=== PATIENT | male | born 1980 | race Caucasian/White ===

== ENCOUNTER 2024-01-07 20:29 | Emergency (ER) | payer MEDICARE, MEDICAID, SELFPAY ==
[2024-01-07] VITALS (24 sets, daily range): BP systolic 145–160; BP diastolic 69–90; PULSE 98–136; RESP 9–18; TEMP 36.5; O2SAT 89–98
--- NOTE | 2024-01-07 20:45 | RT.EKG_ITS ---
APPROVED REPORT Exam: Resting ECG Reason for Exam: tachycardia Patient Location: E HR:120 bpm ECG Measurements Heart Rate 120 AXIS IL 151 P 43 QRSd 89 QRS 64 QT 311 T 29 QTc 440 Conclusion Sinus tachycardia 120 no stemi
--- NOTE | 2024-01-07 21:11 | W.ED.GENAD ---
Discharge Plan Discharge Details Chief Complaint: PsychEval Clinical Impression: Paranoid, Tachycardia, Auditory hallucination, Bipolar 1 disorder, Diaphoresis Primary Care Provider: Unknown,Unknown ED Provider: Di De La Fuente [facility] General Date/Time Provider Initiated Documentation: 01/07/24 20:37. Limitations to Documentation: altered mental status. Information obtained by: patient and old records reviewed. HPI Narrative: 43-year-old gentleman with past medical history of bipolar disorder, paranoia, TBI, opiate use disorder presents for evaluation of altered mental status. Patient presents via police. He is also accompanied by [facility] worker. They got involved today because the patient has been calling 911 repeatedly asking for help. He has been seeing some very concerning things that include that he has got bodies in his room, the people are out to get him. He stated that he had his girlfriend, but did not know her name and that he she will be waiting at home for him in bed. He reported that he had people yelling at him and that he was repeatedly receiving shocks from them. It has per report been confirmed that the patient does not have the people in his house. He was found at [place] and had stolen a phone smelter charger. The police and the plastic surgeon met the patient there and he reported that he did want to come here to the hospital for evaluation. On my evaluation of the patient, he is having difficulty maintaining eye contact. He is clearly responding to internal stimuli and will stare into the distance and talk in a very low voice that I cannot understand. He says that he is bending twitched and has this shock sensation coming across his arms. He denies any drug use. He does report that he has a history of a brain injury. Related Data Allergies Allergy/AdvReac Type Severity Reaction Status Date / Time hydrocodone Allergy Unknown Contraindic Unverified 01/07/24 21:20 ated General Stated Complaint: PsychEval YULIYA: 2 Exam Narrative Exam Narrative: Review of Systems: All systems reviewed & are unremarkable except as noted in HPI and below Well-developed, +acute distress + Profusely diaphoretic NCAT PERRL, normal conjunctiva Pupils midrange Tachycardic Unlabored respiratory effort Nondistended abdomen Extremities w/o deformity, no cyanosis, no edema No rashes or lesions. Oriented to person, cannot tell me where he is or the circumstances. He reports that he was trying to get in touch with his plastic surgeon Difficult to maintain attention, responding to internal stimuli, having conversations under his breath Course Vital Signs Vital signs: Vital Signs Temperature 36.5 C 01/07/24 21:04 Pulse 136 H 01/07/24 21:04 Respiratory Rate 18 01/07/24 21:04 Blood Pressure 147/81 H 01/07/24 21:04 Pulse Oximetry 98 01/07/24 21:04 Temperature 36.5 C 01/07/24 21:04 Temperature Source Temporal Artery Scan 01/07/24 21:04 Pulse 136 H 01/07/24 21:04 Respiratory Rate 18 01/07/24 21:04 Blood Pressure 147/81 H 01/07/24 21:04 Blood Pressure Position Sitting 01/07/24 21:04 Pulse Oximetry 98 01/07/24 21:04 Oxygen Delivery Method Room Air 01/07/24 21:04 Oxygen Flow Rate 0 01/07/24 21:04 Medical Decision Making Emergent evaluation of altered mental status. Limited information and history regarding the events of the day were able to be obtained from the patient. I am concerned that he is diffusely diaphoretic and tachycardic. My initial differential includes polysubstance abuse, cardiac dysrhythmia, electrolyte derangement. I was able to obtain medical history from the [facility]. Patient does have a history of bipolar disorder and TBI and opiate use disorder. 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 It also appears that he had a traumatic brain injury in 2012. The medical record at [facility] reveals that he was last seen in [place] at 2020 at [facility]. There were emergency contacts listed in his chart. 1 number is inaccurate, the other number was a person that was his home health sitter but she has not seen the patient for 2 years. Per [facility], patient has been in the [facility] for an unknown amount of time but has housing at the [facility]. Initial plan for lab work, fluid resuscitation. Will give benzodiazepine for stabilization. At this time there is no indication for EE. For patient's saftey, a CPSO has been ordered. Will monitor closely and reassess. 2219 VS continue to stablize, patient continues to sleep. will sign out to oncoming provider. Plan for review of labwork. UDS, request by [facility]. Will need assessment of MH needs prior to discharge. Quality:SDOH Health Related Social Needs: No Data to Display [facility] All Active Problems (Updated 01/07/24 @ 22:20 by Di De La Fuente MD) Diaphoresis (Acute) Bipolar 1 disorder (Acute) Auditory hallucination (Acute) Tachycardia (Acute) Paranoid (Acute) Social History Smoking/Tobacco Use Status: Unknown Smoking risk assessment performed?: Yes Substance use type: unknown Details: Unable to obtain history Sign Out Sign Out Data: Sign Out Comment: 43y M with TBI, Bipolar, OUD (on brixadi) presents with agitation, paranoia, hallucinations. was diaphoretic and tachycardic on arrival. Has been giving ativan and IV fluids. Currently sleeping, on mobile sales technician. Will need review of labs and reassess MH needs prior to discharge. [facility] aware of patient but unable to evaluate him fully because of his mental status. Last updated by Di De La Fuente MD at 01/07/24 22:15
[2024-01-07] MEDS: LORazepam 2 MG/ML VIAL IVP (21:25)
[2024-01-07] MEDS: Normal Saline 1,000 ML 1000 ML IV (21:39)
[2024-01-07 21:40] LABS: Abs Immature Grans 0.03 10^3/uL (0.0-0.06); Absolute Basophil Count 0.02 10^3/uL (0.0-0.2); Absolute Eosinophil Count 0.07 10^3/uL (0.0-0.7); Absolute Lymphocyte Count 1.57 10^3/uL (1.2-3.4); Absolute Monocyte Count 1.03 10^3/uL (0.1-0.8); Absolute Neutrophil Count 6.33 10^3/uL (1.2-6.7); Basophils % 0.2; Eosinophils % 0.8; HGB 13.2 g/dL (13.5-17.5); Immature Grans % 0.3; Lymphocytes % 17.3; MCH 29.9 pg (27.0-33.0); MCV 91 fL (80-95); MPV 10.1 fL (8.0-11.0); Monocytes % 11.4; Platelet Count 248 10^3/uL (130-400); RBC 4.41 10^6/uL (4.36-5.78); RDW-SD 42.9 fL; WBC 9.05 10^3/uL (4.4-10.8)
[2024-01-07 21:58] LABS: Magnesium 2.3 mg/dL (1.8-2.4); Troponin I < 50 ng/L (< or =60)
[2024-01-07 22:09] LABS: ALT 44 U/L (16-63); AST 52 U/L (15-37); Alkaline Phosphatase 98 U/L (46-116); Anion Gap 11.6 mmol/L (3-11); BUN 12 mg/dL (7-18); Bilirubin, Total 1.2 mg/dL (0.2-1.0); CO2 23.4 mmol/L (21.0-32.0); CREATININE 1.7 mg/dL (0.70-1.30); Calcium 9.1 mg/dL (8.5-10.1); Chloride 104 mmol/L (98-107); Glucose 126 mg/dL (74-106); Potassium 3.4 mmol/L (3.5-5.1); Sodium 139 mmol/L (136-145); TSH (W/Ref FT4) 1.04 uIU/mL (0.36-3.74); Total Protein 7.1 g/dL (6.4-8.2)
[2024-01-07 22:11] LABS: ETHANOL BLOOD < 3.0 mg/dL (<10); Salicylate 4.6 mg/dL (<2.8)
[2024-01-07 22:12] LABS: Acetaminophen < 2 ug/mL (10-30)
[2024-01-07 22:26] LABS: Creatine Kinase 1049 U/L (39-308)
--- NOTE | 2024-01-07 22:46 | W.EDPROG ---
Date of service: 01/07/24 Time of Service: 22:00 Medical Decision Making 43-year-old male with history of bipolar disorder. Laboratory studies show elevated CPK. IV fluid bolus was given. Patient also received bicarb drip. Recheck of laboratory studies after bicarb drip shows that CPK has trended down however still mildly elevated. He also has further decrease in his potassium. IV potassium replacement was ordered as patient is currently sleeping. Further IV fluids were ordered. Dose of oral potassium placement was ordered for when patient wakes in the morning. He has been sleeping throughout shift. Will be signed out to oncoming provider for further evaluation and disposition. Quality:[facility] Health Related Social Needs: No Data to Display Sign Out Sign Out Data: Sign Out Comment: 43y M with TBI, Bipolar, OUD (on brixadi) presents with agitation, paranoia, hallucinations. was diaphoretic and tachycardic on arrival. Has been giving ativan and IV fluids. Currently sleeping, on workers compensation examiner. Will need review of labs and reassess MH needs prior to discharge. [facility] aware of patient but unable to evaluate him fully because of his mental status. Last updated by Di De La Fuente MD at 01/07/24 22:15 Discharge Plan Discharge Details Chief Complaint: PsychEval Clinical Impression: Paranoid, Tachycardia, Auditory hallucination, Bipolar 1 disorder, Diaphoresis, Rhabdomyolysis, Acute hypokalemia Primary Care Provider: Unknown,Unknown ED Provider: Renée Pike
[2024-01-07] MEDS: Normal Saline 1,000 ML 100 ML IV (22:47)
[2024-01-07] MEDS: SODIUM BICARBONATE 150 MEQ in DEXTROSE 5%-WATER 850 ML 250 MEQ IV (23:19)
[2024-01-08] VITALS (61 sets, daily range): BP systolic 123–166; BP diastolic 77–99; PULSE 80–98; RESP 8–22; O2SAT 89–98
[2024-01-08 04:30] LABS: Anion Gap 9.1 mmol/L (3-11); BUN 10 mg/dL (7-18); CO2 30.9 mmol/L (21.0-32.0); CREATININE 1.2 mg/dL (0.70-1.30); Chloride 104 mmol/L (98-107); Creatine Kinase 840 U/L (39-308); Estimated GFR 77.92 (mL/min/1.73m2); Glucose 132 mg/dL (74-106); Potassium 3.1 mmol/L (3.5-5.1); Sodium 144 mmol/L (136-145)
[2024-01-08] MEDS: Normal Saline 1,000 ML 1000 ML IV (05:55)
[2024-01-08] MEDS: POTASSIUM CHLORIDE 10 MEQ/100 ML BAG 100 MEQ IVPB (05:56)
[2024-01-08] MEDS: Potassium Chloride 20 MEQ TABCR 40 MEQ PO (07:30)
[2024-01-08 07:39] LABS: Bilirubin Moderate (Negative); Blood Negative (Negative); Clarity Cloudy (Clear); Glucose 100 mg/dL (Negative); Ketones 15 mg/dL (Negative); Leukocyte Esterase Trace (Negative); Nitrite Positive (Negative); Specific Gravity 1.025 (1.005-1.025); pH 5.5 (5-8)
--- NOTE | 2024-01-08 07:42 | ED.PROG_ITS ---
Date of service: 01/08/24 Time of Service: 07:42 Medical Decision Making Patient resting comfortably no acute distress. Patient Dors that he does not want to be here. Denies SI denies HI. Endorse that he lives at the [facility] and wishes to leave and walk home. Requesting to use the phone before he leaves. Patient calm cooperative interactive goal oriented. Quality:SDOH Health Related Social Needs: No Data to Display Sign Out Sign Out Data: Sign Out Comment: 43y M with TBI, Bipolar, OUD (on brixadi) presents with agitation, paranoia, hallucinations. was diaphoretic and tachycardic on arrival. Has been giving ativan and IV fluids. Currently sleeping, on timber poisoner. Will need review of labs and reassess MH needs prior to discharge. [facility] aware of patient but unable to evaluate him fully because of his mental status. Last updated by Di De La Fuente MD at 01/07/24 22:15 Discharge Plan Disposition Patient Disposition: Home Condition: Improving Discharge Details Chief Complaint: PsychEval Clinical Impression: Bipolar 1 disorder, Rhabdomyolysis, Acute hypokalemia Primary Care Provider: Unknown,Unknown ED Provider: Jose Adair Discharge Instructions Instructions: Psychotic Disorder (ED) Additional Instructions: Please follow-up with your primary care physician and [facility] human services
[2024-01-08 07:49] LABS: Bacteria Moderate HPF (Negative); Crystals Negative HPF (Negative); Epithelial Cells Few HPF (Negative); Mucus Trace (Negative); Other Cells Few Renal (Negative); RBC 0-2 HPF (0-2)
[2024-01-08 07:50] LABS: C & S Indicated? Yes
[2024-01-08 07:54] LABS: *AMPHETAMINES SCREEN URINE Negative (Negative); *BARBITURATES SCREEN URINE Negative (Negative); *BENZODIAZEPINES SCREEN URINE Negative (Negative); Cannabinoids THC Negative (Negative); Cocaine Screen,Urine Negative (Negative); METHADONE URINE SCREEN Negative (Negative); OPIATES URINE SCREEN Negative (Negative)
[2024-01-08 07:55] LABS: Tricyclic Antidepressants Positive (Negative)
== END 2024-01-08 08:09 | disposition home or self-care (01) ==
LOC: ER 01-08 08:13
PROVIDERS: Emergency Medicine; Emergency Medicine Emergency Medical Services; Emergency Provider Emergency Medicine
DX: F22 Delusional disorders (principal); R00.0 Tachycardia, unspecified; R44.0 Auditory hallucinations; F31.9 Bipolar disorder, unspecified; M62.82 Rhabdomyolysis; E87.6 Hypokalemia; R41.0 Disorientation, unspecified; Z11.52 Encounter for screening for COVID-19
CPT/HCPCS: 00123; 80048; 80053; 80307; 82550; 93005; 96361; 96365; 96375; 99284; 80320; 80329; 81003; 81015; 83735; 84443; 84484; 85025; 87086; 93010; J2060; J3480; J7060

== ENCOUNTER 2024-01-08 20:16 | Inpatient (IN) | payer MEDICARE, MEDICAID, SELFPAY ==
[2024-01-08 20:29] VITALS: BP 170/65; PULSE 124; RESP 14; TEMP 37.4; O2SAT 96
--- NOTE | 2024-01-08 20:45 | RT.EKG_ITS ---
APPROVED REPORT Exam: Resting ECG Reason for Exam: tachycardia Patient Location: E HR:117 bpm ECG Measurements Heart Rate 117 AXIS AZ 155 P 25 QRSd 89 QRS 72 QT 331 T -12 QTc 463 Conclusion Sinus tachycardia...rate> 99 Consider anterior infarct...Q >30mS in V2-V5 sinus tachycardia, normal axis, normal intervals, non ischemic
[2024-01-08] MEDS: Normal Saline 1,000 ML 1000 ML IV ×2 (21:30→23:47)
[2024-01-08 21:38] LABS: Abs Immature Grans 0.02 10^3/uL (0.0-0.06); Absolute Basophil Count 0.02 10^3/uL (0.0-0.2); Absolute Eosinophil Count 0.08 10^3/uL (0.0-0.7); Absolute Lymphocyte Count 1.98 10^3/uL (1.2-3.4); Absolute Monocyte Count 0.82 10^3/uL (0.1-0.8); Absolute Neutrophil Count 5.41 10^3/uL (1.2-6.7); Basophils % 0.2; HCT 36.7 % (40.0-50.0); HGB 12.3 g/dL (13.5-17.5); Immature Grans % 0.2; Lymphocytes % 23.8; MCH 30.2 pg (27.0-33.0); MCHC 33.5 % (32.0-36.0); MCV 90 fL (80-95); MPV 10.1 fL (8.0-11.0); Monocytes % 9.8; Platelet Count 229 10^3/uL (130-400); RBC 4.07 10^6/uL (4.36-5.78); RDW-SD 42.9 fL; WBC 8.33 10^3/uL (4.4-10.8)
--- NOTE | 2024-01-08 21:50 | NUR.NOTE ---
Pt stated he is not able to provide a urine sample at this time, OMARI
--- NOTE | 2024-01-08 21:50 | NUR.NOTE ---
Pt has refused his head CT, he is conscious alert awake and able to answer questions appropriately, he has stated that he is depressed and doesn't need to have his head looked at, pt appears capable of making an informed decision, OMARI
[2024-01-08 21:51] LABS: ALT 45 U/L (16-63); AST 59 U/L (15-37); Albumin 3.5 g/dL (3.4-5.0); Alkaline Phosphatase 93 U/L (46-116); Anion Gap 9.8 mmol/L (3-11); BUN 12 mg/dL (7-18); Bilirubin, Total 0.6 mg/dL (0.2-1.0); CO2 27.2 mmol/L (21.0-32.0); CREATININE 0.9 mg/dL (0.70-1.30); Calcium 8.2 mg/dL (8.5-10.1); Chloride 104 mmol/L (98-107); Estimated GFR 110.04 (mL/min/1.73m2); Glucose 124 mg/dL (74-106); Lipase 12 U/L (16-77); Potassium 3.5 mmol/L (3.5-5.1); Sodium 141 mmol/L (136-145)
[2024-01-08 22:01] LABS: ETHANOL BLOOD < 3.0 mg/dL (<10)
[2024-01-08 22:06] LABS: Magnesium 2.1 mg/dL (1.8-2.4)
--- NOTE | 2024-01-08 22:15 | ED.GENADUL_ITS ---
Discharge Plan Discharge Details Chief Complaint: PsychEval Admit Date/Time: 01/08/24 23:58 Admit Provider: Raad Crooks Attending Provider: Raad Crooks Primary Care Provider: Unknown,Unknown ED Provider: Maxine Brennan Discharge Data Discharge Date/Time-TO BE ENTERED AT DEPARTURE: 01/09/24 02:19 HPI General Date/Time Provider Initiated Documentation: 01/08/24 20:17 . HPI Narrative: This 43-year-old male presents with report of being seen last evening and feeling confused at that time. He denies any illicit drug use. He states he felt much better when he awoke this morning. He denies any new medications. He states that over the past 3 days has been feeling very suicidal and depressed. He states he has been out of his meds and has thoughts of wanting to harm himself. Denies any chest pain or shortness of breath. Denies any attempts to harm himself. Related Data Home Medications Medication Instructions Recorded Confirmed buprenorphine 128 mg/0.36 mL 128 mg subcut Q28D 01/08/24 01/08/24 solution,ext.rel.subcutaneous syringe (Brixadi Monthly) bupropion HCl 150 mg 24 hr tablet, 150 mg PO BID 01/08/24 01/08/24 extended release buspirone 10 mg tablet 20 mg PO TID 01/08/24 01/08/24 cefpodoxime 200 mg tablet 200 mg PO BID 7 days #14 tabs 01/08/24 01/09/24 clonidine HCl 0.1 mg tablet 0.1 mg PO TID 01/08/24 01/08/24 famotidine 40 mg tablet 40 mg PO DAILY 01/08/24 01/08/24 lamotrigine 150 mg tablet 150 mg PO DAILY 01/08/24 01/08/24 omeprazole 40 mg capsule,delayed 40 mg PO DAILY 01/08/24 01/08/24 release pregabalin 300 mg capsule 300 mg PO BID 01/08/24 01/08/24 Previous Rx's Medication Instructions Recorded cefpodoxime 200 mg tablet 200 mg PO BID 7 days #14 tabs 01/08/24 Allergies Allergy/AdvReac Type Severity Reaction Status Date / Time bee venom protein (honey bee) Allergy Severe Anaphylaxis Verified 01/08/24 20:36 hydrocodone Allergy Unknown Contraindic Unverified 01/08/24 20:36 ated aspirin AdvReac Nausea Verified 01/08/24 07:19 propoxyphene AdvReac Other (See Verified 01/08/24 07:19 Comment) General Stated Complaint: PsychEval YULIYA: 2 Course Vital Signs Vital signs: Vital Signs Temperature 37.4 C 01/08/24 20:29 Pulse 124 H 01/08/24 20:29 Respiratory Rate 14 01/08/24 20:29 Blood Pressure 170/65 H 01/08/24 20:29 Pulse Oximetry 96 01/08/24 20:29 Temperature 37.4 C 01/08/24 20:29 Temperature Source Temporal Artery Scan 01/08/24 20:29 Pulse 124 H 01/08/24 20:29 Respiratory Rate 14 01/08/24 20:29 Respiratory Effort Normal, Non-Labored 01/08/24 20:37 Blood Pressure 170/65 H 01/08/24 20:29 Blood Pressure Position Sitting 01/08/24 20:29 Pulse Oximetry 96 01/08/24 20:29 Oxygen Delivery Method Room Air 01/08/24 20:29 Oxygen Flow Rate 0 01/08/24 20:29 Pain Level 0 01/08/24 20:29 Lab/Test Results Lab/Test Results: Laboratory Tests Range/Units 01/08/24 21:28 WBC (4.4-10.8) 10^3/uL 8.33 RBC (4.36-5.78) 10^6/uL 4.07 L Hgb (13.5-17.5) g/dL 12.3 L Hct (40.0-50.0) % 36.7 L MCV (80-95) fL 90 MCH (27.0-33.0) pg 30.2 MCHC (32.0-36.0) % 33.5 RDW (11.8-14.1) % 13.0 Plt Count (130-400) 10^3/uL 229 MPV (8.0-11.0) fL 10.1 Immature Gran % 0.2 Neutrophils % 65.0 Lymphocytes % 23.8 Monocytes % 9.8 Eosinophils % 1.0 Basophils % 0.2 Nucleated RBC % (0.0-0.3) % 0.0 Absolute Neutrophils (1.2-6.7) 10^3/uL 5.41 Absolute Lymphocytes (1.2-3.4) 10^3/uL 1.98 Absolute Monocytes (0.1-0.8) 10^3/uL 0.82 H Absolute Eosinophils (0.0-0.7) 10^3/uL 0.08 Absolute Basophils (0.0-0.2) 10^3/uL 0.02 Sodium (136-145) mmol/L 141 Potassium (3.5-5.1) mmol/L 3.5 Chloride (98-107) mmol/L 104 Carbon Dioxide (21.0-32.0) mmol/L 27.2 Anion Gap (3-11) mmol/L 9.8 BUN (7-18) mg/dL 12 Creatinine (0.70-1.30) mg/dL 0.9 Est GFR (CKD-EPI 2020) (mL/min/1.73m2) 110.04 Glucose (74-106) mg/dL 124 H Calcium (8.5-10.1) mg/dL 8.2 L Magnesium (1.8-2.4) mg/dL 2.1 Total Bilirubin (0.2-1.0) mg/dL 0.6 AST (15-37) U/L 59 H ALT (16-63) U/L 45 Alkaline Phosphatase (46-116) U/L 93 Total Protein (6.4-8.2) g/dL 7.0 Albumin (3.4-5.0) g/dL 3.5 Lipase (16-77) U/L 12 L Ethyl Alcohol (<10) mg/dL < 3.0 Medical Decision Making 23-year-old male, alert and oriented x 3, having intermittent auditory and visual hallucinations but completely lucid, states he has had these before and d oes have a history of bipola with psychotic features,, he has reportedly been off his meds for the last 3 days He denies any attempts to harm self by taking too many meds He is reportedly suicidal at this time but does denies any attempts to harm self Patient is alert and oriented x 4, he is ambulatory with steady gait, he has a nonfocal neurological exam without any visible sign of trauma, pupils equal round reactive to light and accommodation, speech intact I did order a CT head, however patient declines he states he feels he does not need to have this test performed as he is at his baseline, he states he does have a history of TBI I think it is reasonable to hold off on CT at this time and continue to observe patient At this time, patient's CPK remains elevated when compared to prior 1400, 1000 yesterday, he is on Lyrica and Lamictal which both can cause rhabdomyolysis, I will hold these medications at this time Patient received 2 L of fluid in the emergency department, he will continue to need fluid resuscitation, he is not medically cleared to be evaluated by mental health yet On exam, he is oropharynx was quite dry, patient appears clinically dehydrated His urine is quite dark as well He has no flank pain and creatinine is within normal limits Mild elevation in LFT I think patient will need admission for IV fluids secondary to acute rhabdomyolysis and holding Lamictal and Lyrica at this time I will reinitiate patient's additional meds and Dr. Parkinson will admit patient to his service, full CODE STATUS Quality:SDOH Health Related Social Needs: Health related social needs risk of homeless PFSH All Active Problems (Updated 01/09/24 @ 07:38 by Raad Crooks) Opioid use disorder (Chronic) TBI (traumatic brain injury) (Chronic) UTI (urinary tract infection) (Acute) Acute hypokalemia (Acute) Rhabdomyolysis (Acute) Bipolar 1 disorder (Chronic) Social History Smoking/Tobacco Use Status: Current-Occasional Tobacco Type: e-cigarettes Smoking risk assessment performed?: Yes Alcohol Intake: current Alcohol Intake frequency: 0-2 drinks per day Alcohol type: beer Substance use type: unknown Details: Unable to obtain history Housing: other PAWSS Have you Been Recently Intoxicated or Drunk Within the Last 30 days?: Yes Have you Ever Experienced Previous Episodes of Alcohol Withdrawal?: Yes Have you ever Experienced Withdrawal Seizures?: Yes Have you ever Experienced Delirium Tremens(DT)s?: No Have you ever undergone Alcohol Rehabilitation Treatment (i.e, inpt ot outpatient treatment programs)?: Yes Have you ever Experienced Blackouts?: No Have you ever Combined Alcohol with other Downers within the last 90 days?: No Have you ever Combined Alcohol with any other Substance of Abuse during the last 90 days?: No Positive Blood Alcohol level on Presentation? [PCS.BAL]: Unable to Obtain Evidence of Increased Autonomic Activity (i.e. HR>120, tremor, sweating, agitation, nausea)?: No Result: 4
[2024-01-08 22:16] LABS: COVID-19 PCR Negative (Negative); Influenza A PCR Negative (Negative); Influenza B PCR Negative (Negative); RSV PCR Negative (Negative)
[2024-01-08 22:17] LABS: Source Nasopharynx
[2024-01-08 22:39] LABS: Creatine Kinase 1420 U/L (39-308)
[2024-01-08 22:43] LABS: Bilirubin Small (Negative); Blood Negative (Negative); Clarity Clear (Clear); Glucose Negative (Negative); Ketones 40 mg/dL (Negative); Leukocyte Esterase Negative (Negative); Nitrite Negative (Negative); Specific Gravity >= 1.030 (1.005-1.025); pH 5.5 (5-8)
[2024-01-08 22:50] LABS: Epithelial Cells Moderate HPF (Negative); RBC 0-2 HPF (0-2)
[2024-01-08 22:51] LABS: Bacteria Negative HPF (Negative); Crystals Negative HPF (Negative); Mucus Heavy (Negative); Other Cells Rare Transitional (Negative)
[2024-01-08 22:53] LABS: C & S Indicated? No/Sq. Contamination
[2024-01-08 23:00] LABS: *AMPHETAMINES SCREEN URINE Negative (Negative); *BARBITURATES SCREEN URINE Negative (Negative); *BENZODIAZEPINES SCREEN URINE Negative (Negative); Cannabinoids THC Negative (Negative); Cocaine Screen,Urine Negative (Negative); METHADONE URINE SCREEN Negative (Negative); OPIATES URINE SCREEN Negative (Negative)
[2024-01-08 23:07] LABS: Tricyclic Antidepressants Positive (Negative)
[2024-01-08] MEDS: busPIRone 5 MG TAB 20 MG PO (23:46)
[2024-01-08] MEDS: buPROPion-XL 150 MG TABCR PO (23:46)
[2024-01-08] MEDS: Famotidine 20 MG TAB 40 MG PO (23:47)
[2024-01-08] MEDS: cloNIDine 0.1 MG TAB PO (23:47)
[2024-01-09] VITALS (7 sets, daily range): BP systolic 110–143; BP diastolic 48–98; PULSE 76–96; RESP 14–18; TEMP 35.4–37.4; O2SAT 94–99
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
[2024-01-09] MEDS: Normal Saline 1,000 ML 150 ML IV (02:57)
[2024-01-09] MEDS: Acetaminophen 325 MG TAB PO ×3 (05:35→16:30)
[2024-01-09 07:17] LABS: TSH (W/Ref FT4) 1.49 uIU/mL (0.36-3.74)
[2024-01-09 07:20] LABS: Creatine Kinase 1145 U/L (39-308)
[2024-01-09] MEDS: buPROPion-XL 150 MG TABCR PO ×2 (08:27→13:08)
[2024-01-09] MEDS: busPIRone 5 MG TAB 20 MG PO ×3 (08:28→20:42)
[2024-01-09] MEDS: Cefpodoxime 200 MG TAB PO ×2 (08:28→20:44)
[2024-01-09] MEDS: cloNIDine 0.1 MG TAB PO ×3 (08:29→20:45)
[2024-01-09] MEDS: Famotidine 20 MG TAB 40 MG PO (08:29)
[2024-01-09] MEDS: Enoxaparin 40 MG/0.4 ML SYR SC (08:29)
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
--- NOTE | 2024-01-09 12:54 | W.PM.PROGNOT ---
Date of Service Date of service: 01/09/24 Time of Service: 12:54 Assessment and Plan Assessment and plan (1) Rhabdomyolysis: Start date: 01/08/24 Status: Acute Assessment and plan: -etiology uncertain. -His presenting symptoms on the same day could have been associated with not taking his meds for 3 days and having serotonin syndrome though this was not addressed. -He is not tremulous or as agitated and not diaphoretic upon his second presentation but rhabdomyolysis was persistent and worsening. -He did have a bicarb drip and IV hydration previously and IV hydration will be continued for now with no further evaluation other than holding the possible offending medications which could cause rhabdomyolysis. -Is uncertain how long he has been on this medication regimen. -holding lamictal and pregabalin -CK improved this AM from 1420 down to 1145, will continue to monitor -Ordered Psych consult for medication recommendations, odd affect, and reported suicidal ideation Qualifiers: Rhabdomyolysis type: non-traumatic Qualified Code(s): M62.82 - Rhabdomyolysis (2) UTI (urinary tract infection): Start date: 01/07/24 Status: Acute Assessment and plan: -Patient was started on cephalexin which will be continued with follow-up urine culture adjusting medical therapy as needed. -He is not having symptoms of UTI, pyelonephritis or sepsis and imaging was not performed but could be entertained if he has fever or change in status. Qualifiers: Urinary tract infection type: acute cystitis Hematuria presence: without hematuria Qualified Code(s): N30.00 - Acute cystitis without hematuria (3) TBI (traumatic brain injury): Status: Chronic Assessment and plan: -Patient has just recently moved to this area and needs increased supervision of medical care and follow-up. Qualifiers: Encounter type: sequela Loss of consciousness presence/duration: unknown LOC status Qualified Code(s): S06.9XAS - Unspecified intracranial injury with loss of consciousness status unknown, sequela (4) Bipolar 1 disorder: Status: Chronic Assessment and plan: -Reinitiate psychiatric medications except for Lyrica and Lamictal. Patient will need psychiatric evaluation with history of suicidal ideation and paranoia obtain over the last 48 hours in the ED. (5) Opioid use disorder: Status: Chronic Assessment and plan: -Patient is on injectable Suboxone and had a negative urine drug screen upon admission indicating that he is not having recent polysubstance abuse. -He did deny recent opioid use to the ED physician. -Suboxone would not show up on urine drug screen and he will follow-up with his substance abuse counseling as an outpatient. -He does not appear to be self using presently and his recent symptoms are most likely not secondary to withdrawal symptoms from illicit drug use. Subjective Subjective Interval history since last seen: Patient states that he is doing well today and feels better. He appears to show understanding that his complaints of muscle weakness are tied to his CK levels and possibly one of his psych meds and that we will be consulting psychiatry for recommendations on medications going forward. Exam Narrative Exam Narrative: Well-appearing gentleman sitting on the edge of the bed in no acute distress, awake, alert, oriented to person, place, time and location though questionable whether or not patient fully understands current medical condition, heart regular rate rhythm, lungs clear to auscultation bilaterally, abdomen soft, nontender, nondistended Objective Last Vital Signs Temp 95.7 F L 01/09/24 08:11 Pulse 89 01/09/24 08:11 Resp 18 01/09/24 02:11 BP 125/77 01/09/24 08:11 Pulse Ox 98 01/09/24 08:11 Laboratory Results - last 24 hr 01/08/24 01/08/24 01/09/24 21:28 22:35 06:13 WBC 8.33 RBC 4.07 L Hgb 12.3 L Hct 36.7 L MCV 90 MCH 30.2 MCHC 33.5 RDW 13.0 Plt Count 229 MPV 10.1 Immature Gran % 0.2 Neutrophils % 65.0 Lymphocytes % 23.8 Monocytes % 9.8 Eosinophils % 1.0 Basophils % 0.2 Nucleated RBC % 0.0 Absolute Neutrophils 5.41 Absolute Lymphocytes 1.98 Absolute Monocytes 0.82 H Absolute Eosinophils 0.08 Absolute Basophils 0.02 Sodium 141 Potassium 3.5 Chloride 104 Carbon Dioxide 27.2 Anion Gap 9.8 BUN 12 Creatinine 0.9 Est GFR (CKD-EPI 2020) 110.04 Glucose 124 H Calcium 8.2 L Magnesium 2.1 Total Bilirubin 0.6 AST 59 H ALT 45 Alkaline Phosphatase 93 Creatine Kinase 1420 H 1145 H Total Protein 7.0 Albumin 3.5 Lipase 12 L TSH Urine Color Dark Yellow Urine Clarity Clear Urine pH 5.5 Ur Specific [place] >= 1.030 H Urine Protein 30 H Urine Ketones 40 H Urine Blood Negative Urine Nitrite Negative Urine Bilirubin Small H Urine Urobilinogen 1.0 H Ur Leukocyte Esterase Negative Urine RBC 0-2 Urine WBC 10-20 H Ur Epithelial Cells Moderate Urine Crystals Negative Urine Bacteria Negative Urine Casts 5-10 WBC Urine Mucus Heavy Urine Other Rare Transitional Ur Culture Indicated? No/Sq. Contamination Urine Glucose Negative Urine Opiates Screen Negative Urine Methadone Screen Negative Ur Barbiturates Screen Negative Ur Tricyclics Screen Positive A Ur Amphetamines Screen Negative U Benzodiazepines Scrn Negative Urine Cocaine Screen Negative Ur THC Screen Negative Ethyl Alcohol < 3.0 COVID-19 Source Nasopharynx SARS-CoV-2 (PCR) Negative Influenza Type A (PCR) Negative Influenza Type B (PCR) Negative RSV (PCR) Negative 01/09/24 06:13 WBC RBC Hgb Hct MCV MCH MCHC RDW Plt Count MPV Immature Gran % Neutrophils % Lymphocytes % Monocytes % Eosinophils % Basophils % Nucleated RBC % Absolute Neutrophils Absolute Lymphocytes Absolute Monocytes Absolute Eosinophils Absolute Basophils Sodium Potassium Chloride Carbon Dioxide Anion Gap BUN Creatinine Est GFR (CKD-EPI 2020) Glucose Calcium Magnesium Total Bilirubin AST ALT Alkaline Phosphatase Creatine Kinase Cancelled Total Protein Albumin Lipase TSH 1.49 Urine Color Urine Clarity Urine pH Ur Specific [place] Urine Protein Urine Ketones Urine Blood Urine Nitrite Urine Bilirubin Urine Urobilinogen Ur Leukocyte Esterase Urine RBC Urine WBC Ur Epithelial Cells Urine Crystals Urine Bacteria Urine Casts Urine Mucus Urine Other Ur Culture Indicated? Urine Glucose Urine Opiates Screen Urine Methadone Screen Ur Barbiturates Screen Ur Tricyclics Screen Ur Amphetamines Screen U Benzodiazepines Scrn Urine Cocaine Screen Ur THC Screen Ethyl Alcohol COVID-19 Source SARS-CoV-2 (PCR) Influenza Type A (PCR) Influenza Type B (PCR) RSV (PCR) PAWSS Have you Been Recently Intoxicated or Drunk Within the Last 30 days?: Yes Have you Ever Experienced Previous Episodes of Alcohol Withdrawal?: Yes Have you ever Experienced Withdrawal Seizures?: Yes Have you ever Experienced Delirium Tremens(DT)s?: No Have you ever undergone Alcohol Rehabilitation Treatment (i.e, inpt ot outpatient treatment programs)?: Yes Have you ever Experienced Blackouts?: No Have you ever Combined Alcohol with other Downers within the last 90 days?: No Have you ever Combined Alcohol with any other Substance of Abuse during the last 90 days?: No Positive Blood Alcohol level on Presentation? [PCS.BAL]: Unable to Obtain Evidence of Increased Autonomic Activity (i.e. HR>120, tremor, sweating, agitation, nausea)?: No Result: 4 Time Spent with Patient Time Spent with Patient: >50 minutes Time was spent: preparing to see the patient(eg.review tests), obtaining and/or reviewing separately otained hiistory, ordering medications,tests, procedures, referring, communicating with other health medicare compliance auditor, indepentently interpreting results, counseling the patient and care coordination
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
[2024-01-09] MEDS: Nicotine 21 MG/24 HR PATCH TD (16:52)
[2024-01-09] MEDS: hydrOXYzine HCL 25 MG TAB PO (16:52)
[2024-01-09] MEDS: Melatonin 3 MG TAB PO (22:43)
[2024-01-10] MEDS: Acetaminophen 325 MG TAB PO ×4 (02:08→17:34)
[2024-01-10 03:11] VITALS: BP 125/64; PULSE 61; RESP 18; O2SAT 96
[2024-01-10] MEDS: hydrOXYzine HCL 25 MG TAB PO ×3 (03:43→17:34)
[2024-01-10 06:59] VITALS: BP 140/84; PULSE 83; RESP 20; TEMP 36.4; O2SAT 96
[2024-01-10 07:22] LABS: Anion Gap 8.2 mmol/L (3-11); BUN 5 mg/dL (7-18); CO2 27.8 mmol/L (21.0-32.0); CREATININE 0.8 mg/dL (0.70-1.30); Calcium 8.5 mg/dL (8.5-10.1); Chloride 107 mmol/L (98-107); Creatine Kinase 852 U/L (39-308); Estimated GFR 114.02 (mL/min/1.73m2); Glucose 106 mg/dL (74-106); Potassium 3.6 mmol/L (3.5-5.1); Sodium 143 mmol/L (136-145)
[2024-01-10] MEDS: Enoxaparin 40 MG/0.4 ML SYR SC (08:01)
[2024-01-10] MEDS: busPIRone 5 MG TAB 20 MG PO ×3 (08:02→20:27)
[2024-01-10] MEDS: buPROPion-XL 150 MG TABCR PO ×2 (08:02→13:51)
[2024-01-10] MEDS: Famotidine 20 MG TAB 40 MG PO (08:02)
[2024-01-10] MEDS: Cefpodoxime 200 MG TAB PO ×2 (08:02→20:27)
[2024-01-10] MEDS: cloNIDine 0.1 MG TAB PO ×3 (08:02→20:27)
--- NOTE | 2024-01-10 09:17 | CMPROGNOTE_ITS ---
Date of service: 01/10/24 Care Management Progress Note Progress Note Text Progress Note Text: S/O: After [facility] assessment, [facility] social media sr strategy manager, , CM, RN, and nursing supervisor mold construction huddled. It was determined Ivan could have his own sweatpants and T- shirt, his phone, and CPSO at RN discretion. Pt is voluntary awaiting placement through [facility]. Per request from [facility] couselor Wicho Mcfarland CM attempted to get signature of LTC application, Ivan was not open to signing today and explained various reasons he does not trust Wicho enough to sign the form. CM following. A: Ivan is a 43 year old male admitted to [facility] 01/08/24 for rhabdomyolysis, UTI. P: When medically cleared, anticipate [facility] crisis screening, CM to coordinate. SDOH(Care Management) Screening Will the Patient Participate in the Screening?: Yes Do you worry about having a steady place to live?: yes In the past 12 months, have you had to go without electric, gas, oil or water in your home?: choose not to answer Have you or anyone in your house had to go without enough food to eat?: choose not to answer Has lack of transportation kept you from medical appointments or from doing things needed for daily living?: choose not to answer Has anyone in your support network made you feel unsafe for any reason?: choose not to answer Health Related Social Needs Health related social needs: housing instability, housed, with risk of homelessn dontrell([phone])
--- NOTE | 2024-01-10 11:41 | PDOC.CMSAFE ---
Date of service: 01/10/24 Care Management Safety Plan Status Status: Voluntary Safety Plan Safety Plan: VOLUNTARY FOR INPATIENT PSYCHIATRIC STABILIZATION.? Patient is appropriate in all interactions since arriving at [facility]; Pt has demonstrated appropriate coping and communication skills, has articulated his or her needs and concerns and is fully engaged during staff interactions. Safety plan has been established with patient, and care team, to adhere to patient goals, identify restrictions based on behavioral status, address nutrition, and determine allowed personal belongings, tools for hygiene and personal care. Determine level of activity including ambulation, level of supervision, visitors, and determine privileges based on behaviors and level of engagement by pt. SAFETY PLAN: 1. Will remain on suicide precautions, per MD can have his own sweatpants and T-shirt for comfort. 2. Will remain in room, direct supervision @ RN/NS direscretion per MD order of one-on-one staff provided by CPSO; ADOLFO, STEEPLE JACK head kiln operator. 3. May have paper cups, plates, finger foods as well as a cardboard spoon with which to eat meals. 4. Follow [facility] Management of the Admitted Behavioral Health Patient policy. 5. Comfort bath system, shower permitted with escort at RN discretion. 6. Personal belongings-soft items permitted at RN discretion. 7. Visitors-none at this time. 8. Activities: soft cart items approved per RN discretion. 9.? Bathroom privileges with escort in the ED. 10. Phone: limited to cordless phone at RN discretion. ( Able to have own cell phone per RN discretion) Due to VOLUNTARY status, if patient wishes to leave [facility], staff will contact [facility] Crisis Screener ([phone]) and On-Call Shift Superintendent ([phone]) as soon as possible. In the event of elopement, notify [facility] Police ([phone]). Patient is currently voluntarily at [facility] and seeking inpatient admission when a bed becomes available. [facility] Frontline Retail Warehouse Supervisor will continue seeking placement. Please contact the [employer] Shift Superintendent ([phone]) and [facility] Retail Warehouse Supervisor ([phone]) for any needed changes in the Safety Plan. Safety plan has been provided to interdepartmental care team.
[2024-01-10] MEDS: OLANZapine 5 MG TAB PO (11:58)
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
--- NOTE | 2024-01-10 13:39 | PHACLINREV_ITS ---
Pharmacy Admission Review Admission Clinical Review Admission Pharmacy Review: UTI (urinary tract infection) (Acute) Rhabdomyolysis (Acute) bee venom protein (honey bee) Allergy (Severe, Verified 01/08/24 20:36) Anaphylaxis hydrocodone Allergy (Unknown, Unverified 01/08/24 20:36) Contraindicated aspirin Adverse Reaction (Verified 01/08/24 07:19) Nausea propoxyphene Adverse Reaction (Verified 01/08/24 07:19) Other (See Comment) Resuscitation Status Full Code Height 5 ft 9 in Weight 141.52 kg Comments Comments/Follow Ups: Per morning meeting patient is medically cleared and waiting on inpatient psych bed. Pharmacy Admission Review Renal Dosing Renal Dosing: BUN 5 mg/dL (7-18) L 01/10/24 06:30 Creatinine 0.8 mg/dL (0.70-1.30) 01/10/24 06:30 Medications needing adjustments: Reviewed (CrCl 170.2 mL/min) Anticoagulation Anticoagulation: Hgb 12.3 g/dL (13.5-17.5) L 01/08/24 21:28 Hct 36.7 % (40.0-50.0) L 01/08/24 21:28 Plt Count 229 10^3/uL (130-400) 01/08/24 21:28 Creatinine 0.8 mg/dL (0.70-1.30) 01/10/24 06:30 DVT Prophylaxis: Reviewed Medications: Enoxaparin (40mg daily) Relevant Labs Relevant Labs: Sodium 143 mmol/L (136-145) 01/10/24 06:30 Potassium 3.6 mmol/L (3.5-5.1) 01/10/24 06:30 Chloride 107 mmol/L (98-107) 01/10/24 06:30 Magnesium 2.1 mg/dL (1.8-2.4) 01/08/24 21:28 Electrolytes, C-Reactive P, ESR: Reviewed (WNL) Cardiac Review BP, HR, EF%: Reviewed (HR/BP WNL) QTc Review QTc: Reviewed (463 from 01/07/34) IV to PO Switch IV Medications: Reviewed (No IV meds at this time) Home Meds Home Med List reviewed: Intervened Relevent Home Meds Not ordered & why?: Brixadi (monthly injection), lamotrigine (on hold due to rhabdomyolysis), omeprazole and pregabalin (on hold due to rhabdomyolysis) Patient has quite a few meds on external data list that is not on active med list (cyclobenzaprine, Ventolin, ibuprofen, risperidone, trazodone, hydroxyzine, magnesium). I called his preferred pharmacy ([facility] in [facility]) and asked that they send his med list. Based on list from pharmacy, I updated his home med list and let provider know to review and add orders as necessary. I also informed provider that no order was put in for omeprazole (on patients home med list) Current Meds Current Medication Order Review: Reviewed Pharmacy Antibiotic Review Pharmacy Antibiotic Activity: C/S review and Reviewed, no change Comments: Patient is on cefpodoxime PO BID with stop date of 01/19/24 for UTI. Urine culture growing gram positive santa and negative rods. Comments Comments/Follow Ups: Per morning meeting patient is medically cleared and waiting on inpatient psych bed.
[2024-01-10] MEDS: Nicotine 21 MG/24 HR PATCH TD (16:20)
--- NOTE | 2024-01-10 16:48 | PGE_ITS ---
Date of Service Date of service: 01/10/24 Time of Service: 16:48 Assessment and Plan Assessment and plan (1) Rhabdomyolysis: Status: Acute Assessment and plan: -etiology uncertain. -His presenting symptoms on the same day could have been associated with not taking his meds for 3 days and having serotonin syndrome though this was not addressed. -He is not tremulous or as agitated and not diaphoretic upon his second presentation but rhabdomyolysis was persistent and worsening. -He did have a bicarb drip and IV hydration previously and IV hydration will be continued for now with no further evaluation other than holding the possible offending medications which could cause rhabdomyolysis. -Is uncertain how long he has been on this medication regimen. -holding lamictal and pregabalin -CK improved this AM from 1420 down to 1145, down to 825 on AM 4 -patient now medically cleared to inpatient Psychiatry placement once bed is available Qualifiers: Rhabdomyolysis type: non-traumatic Qualified Code(s): M62.82 - Rhabdomyolysis (2) UTI (urinary tract infection): Status: Acute Assessment and plan: -Patient was started on cephalexin which will be continued with follow-up urine culture adjusting medical therapy as needed. -He is not having symptoms of UTI, pyelonephritis or sepsis and imaging was not performed but could be entertained if he has fever or change in status. Qualifiers: Urinary tract infection type: acute cystitis Hematuria presence: without hematuria Qualified Code(s): N30.00 - Acute cystitis without hematuria (3) TBI (traumatic brain injury): Status: Chronic Assessment and plan: -Patient has just recently moved to this area and needs increased supervision of medical care and follow-up. Qualifiers: Encounter type: sequela Loss of consciousness presence/duration: unknown LOC status Qualified Code(s): S06.9XAS - Unspecified intracranial injury with loss of consciousness status unknown, sequela (4) Bipolar 1 disorder: Status: Chronic Assessment and plan: -Reinitiate psychiatric medications except for Lyrica and Lamictal. -Psyh eval yesterday stated patient was suicidal and recommended inpatient Psych stay and PRN zyprexa for aggitation which has been started -Evaluation today showed patient is no long suicidal but appears to be responding to verbal stimuli and having visual hallucinations, though he voluntarily wishes to seek inpatient Psych treatment (5) Opioid use disorder: Status: Chronic Assessment and plan: -Patient is on injectable Suboxone and had a negative urine drug screen upon a dmission indicating that he is not having recent polysubstance abuse. -He did deny recent opioid use to the ED physician. -Suboxone would not show up on urine drug screen and he will follow-up with his substance abuse counseling as an outpatient. -He does not appear to be self using presently and his recent symptoms are most likely not secondary to withdrawal symptoms from illicit drug use. Subjective Subjective Interval history since last seen: Patient states that he is doing well today and feels better, thouhg he is a little more anxious as compared to yesterday. Exam Narrative Exam Narrative: Well-appearing gentleman sitting on the edge of the bed in no acute distress, awake, alert, oriented to person, place, time and location though questionable whether or not patient fully understands current medical condition, heart regular rate rhythm, lungs clear to auscultation bilaterally, abdomen soft, nontender, nondistended Objective Last Vital Signs Temp 97.5 F L 01/10/24 06:59 Pulse 83 01/10/24 06:59 Resp 20 01/10/24 06:59 BP 140/84 01/10/24 06:59 Pulse Ox 96 01/10/24 06:59 Laboratory Results - last 24 hr 01/10/24 06:30 Sodium 143 Potassium 3.6 Chloride 107 Carbon Dioxide 27.8 Anion Gap 8.2 BUN 5 L Creatinine 0.8 Est GFR (CKD-EPI 2020) 114.02 Glucose 106 Calcium 8.5 Creatine Kinase 852 H PAWSS Have you Been Recently Intoxicated or Drunk Within the Last 30 days?: Yes Have you Ever Experienced Previous Episodes of Alcohol Withdrawal?: Yes Have you ever Experienced Withdrawal Seizures?: Yes Have you ever Experienced Delirium Tremens(DT)s?: No Have you ever undergone Alcohol Rehabilitation Treatment (i.e, inpt ot outpatient treatment programs)?: Yes Have you ever Experienced Blackouts?: No Have you ever Combined Alcohol with other Downers within the last 90 days?: No Have you ever Combined Alcohol with any other Substance of Abuse during the last 90 days?: No Positive Blood Alcohol level on Presentation? [PCS.BAL]: Unable to Obtain Evidence of Increased Autonomic Activity (i.e. HR>120, tremor, sweating, agitation, nausea)?: No Result: 4 Time Spent with Patient Time Spent with Patient: >50 minutes Time was spent: preparing to see the patient(eg.review tests), obtaining and/or reviewing separately otained hiistory, ordering medications,tests, procedures, referring, communicating with other health neurocritical care physician, indepentently interpreting results, counseling the patient and care coordination
--- NOTE | 2024-01-10 19:20 | NUR.NOTE ---
1740 [facility] called because pt stated he was leaving. [facility] transfered to patient room-distribution center supervisor also notified and loss prevention auditor care management notified.
[2024-01-10] MEDS: Melatonin 3 MG TAB PO (20:27)
[2024-01-10 20:28] VITALS: BP 126/80; PULSE 83; RESP 16; TEMP 36.7; O2SAT 98
[2024-01-11 07:39] VITALS: BP 127/85; PULSE 72; RESP 15; TEMP 36.6; O2SAT 94
[2024-01-11] MEDS: Acetaminophen 325 MG TAB PO (07:51)
[2024-01-11] MEDS: buPROPion-XL 150 MG TABCR PO ×2 (07:52→13:44)
[2024-01-11] MEDS: cloNIDine 0.1 MG TAB PO ×3 (07:52→21:02)
[2024-01-11] MEDS: busPIRone 5 MG TAB 20 MG PO ×3 (07:53→21:02)
[2024-01-11] MEDS: Famotidine 20 MG TAB 40 MG PO (07:53)
[2024-01-11] MEDS: Cefpodoxime 200 MG TAB PO ×2 (07:53→21:02)
[2024-01-11] MEDS: OLANZapine 5 MG TAB PO ×2 (07:53→13:44)
--- NOTE | 2024-01-11 09:29 | W.PM.PROGNOT ---
Date of Service Date of service: 01/11/24 Time of Service: 09:30 Assessment and Plan Assessment and plan (1) Rhabdomyolysis: Status: Acute Assessment and plan: -etiology uncertain. -His presenting symptoms on the same day could have been associated with not taking his meds for 3 days and having serotonin syndrome though this was not addressed. -He is not tremulous or as agitated and not diaphoretic upon his second presentation but rhabdomyolysis was persistent and worsening. -He did have a bicarb drip and IV hydration previously and IV hydration will be continued for now with no further evaluation other than holding the possible offending medications which could cause rhabdomyolysis. -Is uncertain how long he has been on this medication regimen. -holding lamictal and pregabalin -CK improved this AM from 1420 down to 1145, down to 825 on AM 01/09 -patient now medically cleared to inpatient Psychiatry placement once bed is available Qualifiers: Rhabdomyolysis type: non-traumatic Qualified Code(s): M62.82 - Rhabdomyolysis (2) UTI (urinary tract infection): Status: Acute Assessment and plan: -Patient was started on cephalexin which will be continued with follow-up urine culture adjusting medical therapy as needed. -He is not having symptoms of UTI, pyelonephritis or sepsis and imaging was not performed but could be entertained if he has fever or change in status. Qualifiers: Urinary tract infection type: acute cystitis Hematuria presence: without hematuria Qualified Code(s): N30.00 - Acute cystitis without hematuria (3) TBI (traumatic brain injury): Status: Chronic Assessment and plan: -Patient has just recently moved to this area and needs increased supervision of medical care and follow-up. Qualifiers: Encounter type: sequela Loss of consciousness presence/duration: unknown LOC status Qualified Code(s): S06.9XAS - Unspecified intracranial injury with loss of consciousness status unknown, sequela (4) Bipolar 1 disorder: Status: Chronic Assessment and plan: -Reinitiate psychiatric medications except for Lyrica and Lamictal. -Psyh eval yesterday stated patient was suicidal and recommended inpatient Psych stay and PRN zyprexa for aggitation which has been started -Evaluation 01/09 showed patient is no longer suicidal but appears to be responding to verbal stimuli and having visual hallucinations, though he voluntarily wishes to seek inpatient Psych treatment (5) Opioid use disorder: Status: Chronic Assessment and plan: -Patient is on injectable Suboxone and had a negative urine drug screen upon admission indicating that he is not having recent polysubstance abuse. -He did deny recent opioid use to the ED physician. -Suboxone would not show up on urine drug screen and he will follow-up with his substance abuse counseling as an outpatient. -He does not appear to be self using presently and his recent symptoms are most likely not secondary to withdrawal symptoms from illicit drug use. Subjective Subjective Interval history since last seen: Patient states that he is doing well today and feels well today and has no complaints or concerns. Exam Narrative Exam Narrative: Well-appearing gentleman sitting on the edge of the bed in no acute distress, awake, alert, oriented to person, place, time and location though questionable whether or not patient fully understands current medical condition, heart regular rate rhythm, lungs clear to auscultation bilaterally, abdomen soft, nontender, nondistended Objective Last Vital Signs Temp 97.9 F 01/11/24 07:39 Pulse 72 01/11/24 07:39 Resp 15 01/11/24 07:39 BP 127/85 01/11/24 07:39 Pulse Ox 94 01/11/24 07:39 PAWSS Have you Been Recently Intoxicated or Drunk Within the Last 30 days?: Yes Have you Ever Experienced Previous Episodes of Alcohol Withdrawal?: Yes Have you ever Experienced Withdrawal Seizures?: Yes Have you ever Experienced Delirium Tremens(DT)s?: No Have you ever undergone Alcohol Rehabilitation Treatment (i.e, inpt ot outpatient treatment programs)?: Yes Have you ever Experienced Blackouts?: No Have you ever Combined Alcohol with other Downers within the last 90 days?: No Have you ever Combined Alcohol with any other Substance of Abuse during the last 90 days?: No Positive Blood Alcohol level on Presentation? [PCS.BAL]: Unable to Obtain Evidence of Increased Autonomic Activity (i.e. HR>120, tremor, sweating, agitation, nausea)?: No Result: 4 Time Spent with Patient Time Spent with Patient: >50 minutes Time was spent: preparing to see the patient(eg.review tests), obtaining and/or reviewing separately otained hiistory, ordering medications,tests, procedures, referring, communicating with other health vehicle care specialist, indepentently interpreting results, counseling the patient and care coordination
[2024-01-11] MEDS: hydrOXYzine HCL 25 MG TAB PO ×2 (10:19→15:50)
--- NOTE | 2024-01-11 10:56 | PDOC.CMPRO ---
Date of service: 01/11/24 Care Management Progress Note Progress Note Text Progress Note Text: S/O: KORTNEY spoke to Wicho from [facility] to inform Ivan was not willing to sign the LTC TBI application. Wicho explained his attempts in getting Ivan into a TBI facility [place] [facility]. He reports Narda Sevilla through [facility] is interested in having the LTC application signed as this is how the facilities cost would be covered.CM spoke Ivan who was sitting on the edge of the bed when talking with CM. He expressed he did not want to go to [facility]. CM spoke to [facility] insurance case manager who also expressed this as well. CM let Ivan know the discussion with [facility] and reported Wicho would like a call back, Ivan shared he would call him in the morning. CM following. A: Ivan is a 43 year old male admitted to [facility] 01/08/24 for rhabdomyolysis, UTI. P: When medically cleared, anticipate [facility] crisis screening, CM to coordinate SDOH(Care Management) Screening Will the Patient Participate in the Screening?: Yes Do you worry about having a steady place to live?: yes In the past 12 months, have you had to go without electric, gas, oil or water in your home?: choose not to answer Have you or anyone in your house had to go without enough food to eat?: choose not to answer Has lack of transportation kept you from medical appointments or from doing things needed for daily living?: choose not to answer Has anyone in your support network made you feel unsafe for any reason?: choose not to answer Health Related Social Needs Health related social needs: housing instability, housed, with risk of homelessness(Z59.811)
[2024-01-11] MEDS: Buprenorphine/Naloxone 8 mg/2 mg FILM 1 EACH SL (11:42)
[2024-01-11 15:32] VITALS: BP 112/50; PULSE 57; RESP 16; TEMP 36.8; O2SAT 97
[2024-01-11] MEDS: Nicotine 21 MG/24 HR PATCH TD (15:50)
[2024-01-11 20:12] VITALS: BP 130/75; PULSE 60; RESP 16; TEMP 37.1; O2SAT 95
[2024-01-11] MEDS: Melatonin 3 MG TAB PO (21:02)
[2024-01-12 08:01] VITALS: BP 142/75; PULSE 65; RESP 16; TEMP 36.3; O2SAT 96
[2024-01-12] MEDS: Buprenorphine/Naloxone 8 mg/2 mg FILM 1 EACH SL (08:20)
[2024-01-12] MEDS: Enoxaparin 40 MG/0.4 ML SYR SC (08:43)
[2024-01-12] MEDS: cloNIDine 0.1 MG TAB PO ×2 (08:43→12:43)
[2024-01-12] MEDS: busPIRone 5 MG TAB 20 MG PO ×2 (08:43→12:43)
[2024-01-12] MEDS: Cefpodoxime 200 MG TAB PO (08:43)
[2024-01-12] MEDS: Famotidine 20 MG TAB 40 MG PO (08:43)
[2024-01-12] MEDS: buPROPion-XL 150 MG TABCR PO ×2 (08:43→12:43)
[2024-01-12] MEDS: OLANZapine 5 MG TAB PO (09:36)
--- NOTE | 2024-01-12 10:54 | PDOC.MHPN2 ---
Date of service: 01/11/24 Time of Service: 01:30 PHQ-9 Over the last 2 weeks, how often have you been bothered by any of the following problems? 1. Little interest or pleasure in doing things: several days 2. Feeling down, depressed, or hopeless: several days 3. Trouble falling or staying asleep, or sleeping too much: several days 4. Feeling tired or having little energy: several days 5. Poor appetite or overeating: several days 6. Feeling bad about yourself - or that you are a failure or have let yourself and your family down: several days 7. Trouble concentrating on things, such as reading the newspaper or watching television: several days 8. Moving or speaking so slowly that other people could have noticed? - Or the opposite - being so fidgety or restless that you have been moving around a lot more than usual: not at all 9. Thoughts that you would be better off or of hurting yourself in some way: several days Total score: 8 Source: Developed by Drs. Cj Santoro, Cynthia Zamorano, Mathieu Fleming and colleagues, with an educational anthony from [employer]. Suicide Severity Rate CSSRS Have you wished you were or wished you could go to sleep and not wake up?: No Have you actually had any thoughts of killing yourself?: No CSSRS2 Have you been thinking about how you might do this?: No Have you had these thoughts and had some intention of acting on them?: No Have you started to work out or worked out the details of how to kill yourself? Do you intend to carry out this plan?: No CSSRS3 Have you ever done anything, started to do anything or prepared to do anything to end your life?: Yes Screening Score Total Score: 2 Screening: Positive Mental Health Emergency Note Release [facility] release signed:: Yes Reason for Visit Client in hospital due to parania, hallucinations, and medical reasons that need treatment from hospital In the last 2 weeks has the pt presented for ES prior to today?: No Client Information Client is: New Well Housed: No,status: Homeless Non Suicidal Self Injury Current: No History: yes, early breastfeeding care specialist discussion directly after reassessment Safety Risk/Harm to Self or Others Current Ideation to Harm Self or Others: No Risk: Does risk to harm exist?: No Risk: Moderate Risk Duty to warn indicated: No Asssessment/Mental Status Appearance: Unremarkable Attitude: Cooperative Behavior: Other Speech: Soft and Slow Affect: Cogruent with mood Mood: Sad, Stressed and Anxious Thought process: Goal directed and Poverty of content Hallucinations: No Delusions: No Attention: Wandering Perception: Other Orientation: Fully orientated Memory: Intact Insight: Fair Judgement: Fair Neurovegetative Symptoms Sleep: Decrease Appetitie: Decrease Interests: No change Energy: Decrease Libido: Not applicable Substance Use: Other Drug Issues: Other Do you use nicotine?: Yes Have you used substances in the last 7 days?: No Additional Issues: Assaultive/Threatening Behavior: No Medical Concerns: Yes Client engaged in active self harm w/weapon: No Threatening to run away: No Child reported abuse/neglect: No Voluntarily presenting for services: Yes Domestic violence is a concern: No Extreme Psychosis or extreme behavior is present: No Impression Client will stay voluntarily at hospital until an inpatient bed becomes available. he will work with his worker from [facility] to find suitable housing for when he is released from inpatient treatment. Resources [facility] reviewed and given:: [id number] Plan/Disposition Recommended Disposition: Hospitalization facilities contacted. Plan: Client will stay hospitalized voluntarily until he goes inpatient for treatment Person reported agreement to plan: Yes Reports/communication Outcome discussed with: PCP/Personnel and Other
--- NOTE | 2024-01-12 11:45 | W.PM.DS.N ---
Date of service: 01/12/24 Time of Service: 11:54 DS: Diagnosis Discharge Diagnosis (1) Rhabdomyolysis: Status: Acute Asessment and Plan: -etiology uncertain. -His presenting symptoms on the same day could have been associated with not taking his meds for 3 days and having serotonin syndrome though this was not addressed. -He is not tremulous or as agitated and not diaphoretic upon his second presentation but rhabdomyolysis was persistent and worsening. -He did have a bicarb drip and IV hydration previously and IV hydration will be continued for now with no further evaluation other than holding the possible offending medications which could cause rhabdomyolysis. -Is uncertain how long he has been on this medication regimen. -holding lamictal and pregabalin -CK improved this AM from 1420 down to 1145, down to 825 on AM 01/09 -patient now medically cleared to inpatient Psychiatry placement once bed is available (2) UTI (urinary tract infection): Status: Acute Asessment and Plan: -Patient was started on cephalexin which will be continued with follow-up urine culture adjusting medical therapy as needed. -He is not having symptoms of UTI, pyelonephritis or sepsis and imaging was not performed but could be entertained if he has fever or change in status. (3) TBI (traumatic brain injury): Status: Chronic Asessment and Plan: -Patient has just recently moved to this area and needs increased supervision of medical care and follow-up. (4) Bipolar 1 disorder: Status: Chronic Asessment and Plan: -Reinitiate psychiatric medications except for Lyrica and Lamictal. -Psyh brianna yesterday stated patient was suicidal and recommended inpatient Psych stay and PRN zyprexa for aggitation which has been started -Evaluation 01/09 showed patient is no longer suicidal but appears to be responding to verbal stimuli and having visual hallucinations, though he voluntarily wishes to seek inpatient Psych treatment (5) Opioid use disorder: Status: Chronic Asessment and Plan: -Patient was supposed to start on an injectable Suboxone but has not yet -continue SL suboxone until initiation of injectable Discharge Plan Disposition Patient Disposition: Psychiatric Hospital[facility] Discharge Details Reason For Visit: Rhabdomyolysis, UTI Admit Date/Time: 01/08/24 23:58 Admit Provider: Raad Crooks Attending Provider: Raad Crooks Primary Care Provider: Unknown,Unknown Hospital Course Hospital Course: Patient initially presented with generalized muscle aches and weakness that was ultimately determined to be secondary to urinary tract infection and rhabdomyolysis with elevated CK. It was postulated that this may be secondary to patient's Lamictal and pregabalin which were held during hospitalization and did lead to a significant improvement in patient's CK levels. He was initially on IV fluids with transitioned to oral and was able to have a significant amount of oral intake in order to allow for continued decrease and CK levels. Additionally, while he was here he was first evaluated by telepsych and at that time patient was actively suicidal and had one-to-one sitter. However, since that time he has been evaluated by in person local psychiatric services who stated that the patient is no longer actively suicidal but is significantly depressed, and is having active nonthreatening visual hallucinations and the patient is actively seeking voluntary admission. Ultimately was determined that the patient was stable for discharge to [place] psychiatric services. Home Meds and New Rx's Prescriptions: Continued cefpodoxime 200 mg tablet 200 mg PO BID 7 Days Qty: 14 0RF Rx Instructions: must administer with a meal/food Brixadi 128 mg/0.36 mL solution, extended rel syringe 128 mg SUBCUT Q28D bupropion HCl 150 mg tablet extended release 24 hr 150 mg PO BID Patient Comments: TAKE ONE TABLET BY MOUTH TWICE A DAY buspirone 10 mg tablet 20 mg PO TID Patient Comments: TAKE TWO TABLETS BY MOUTH THREE TIMES A DAY clonidine HCl 0.1 mg tablet 0.1 mg PO TID Patient Comments: TAKE ONE TABLET BY MOUTH THREE TIMES A DAY NEEDED famotidine 40 mg tablet 40 mg PO DAILY Patient Comments: TAKE ONE TABLET BY MOUTH EVERY DAY omeprazole 40 mg capsule,delayed release(DR/EC) 40 mg PO DAILY Patient Comments: TAKE ONE CAPSULE BY MOUTH EVERY DAY nicotine 21 mg/24 hr patch 24 hour 1 patch topical DAILY Patient Comments: APPLY ONE PATCH TO THE SKIN EVERY DAY cyclobenzaprine 5 mg tablet 5 mg PO HS PRN Patient Comments: TAKE ONE TABLET BY MOUTH AT BEDTIME NEEDED albuterol sulfate [Ventolin HFA] 90 mcg/actuation HFA aerosol inhaler 2 puff INHALATION Q6H PRN Patient Comments: INHALE TWO PUFFS BY MOUTH EVERY 6 HOURS NEEDED FOR WHEEZING ibuprofen 600 mg tablet 600 mg PO QID PRN Patient Comments: TAKE ONE TABLET BY MOUTH FOUR TIMES A DAY NEEDED risperidone 2 mg tablet 2 mg PO BID Patient Comments: TAKE 1 TABLET BY MOUTH TWO TIMES A DAY trazodone 50 mg tablet 50 mg PO HS Patient Comments: TAKE 1 TABLET BY MOUTH AT BEDTIME hydroxyzine HCl 25 mg tablet 25 mg PO TID PRN Patient Comments: TAKE 1 TABLET BY MOUTH THREE TIMES A DAY NEEDED FOR ANXIETY magnesium oxide 400 mg (241.3 mg magnesium) tablet 400 mg PO DAILY Patient Comments: TAKE 1 TABLET BY MOUTH DAILY Discontinued pregabalin 300 mg capsule 300 mg PO BID Patient Comments: TAKE ONE CAPSULE BY MOUTH TWICE A DAY lamotrigine 150 mg tablet 150 mg PO DAILY Patient Comments: TAKE ONE TABLET BY MOUTH EVERY DAY Discharge Instructions Activity:: Activity as Tolerated Equipment/Supplies:: No Equipment Needed Diet:: As Tolerated Discharge Orders Discharge Orders: Discharge Order (Routine); Ordered 01/12/24 Ordered By: Fareed Luciano DS: Summary Time Spent with Patient providing and/or coordinating discharge services: Greater than 30 minutes Status at Discharge Functional status at discharge: independent ambulation Overall status at discharge: patient is back to baseline Mental Status: mental status grossly normal Speech and Movement: speech and movement normal Mood: congruent mood Affect: normal affect Quality:SDOH Health Related Social Needs: Health related social needs risk of homeless Exam Narrative Exam Narrative: Well-appearing gentleman sitting on the edge of the bed in no acute distress, awake, alert, oriented to person, place, time and location though questionable whether or not patient fully understands current medical condition, heart regular rate rhythm, lungs clear to auscultation bilaterally, abdomen soft, nontender, nondistended Psych Mental Status: mental status grossly normal Speech and Movement: speech and movement normal Mood: congruent mood Affect: normal affect DS: Data Vitals/I&O Vitals and I&O: Vital Signs Temperature 97.3 F L 01/12/24 08:01 Temperature Source Tympanic 01/12/24 08:01 Pulse 65 01/12/24 08:01 Pulse Rhythm Regular 01/12/24 11:03 Respiratory Rate 16 01/12/24 08:01 Respiratory Effort Normal 01/12/24 11:03 Respiratory Depth Normal 01/12/24 11:03 Respiratory Pattern Normal 01/12/24 11:03 Blood Pressure 142/75 H 01/12/24 08:01 Blood Pressure Position Sitting 01/08/24 20:29 Pulse Oximetry 96 01/12/24 08:01 Oxygen Delivery Method Room Air 01/12/24 08:01 Oxygen Flow Rate 0 01/12/24 08:01 Pain Level 10 01/12/24 08:01 Comment legs bones 01/11/24 20:12 Intake & Output 01/11/24 01/12/24 01/12/24 17:59 05:59 17:59 Intake Total 150 / 150 Balance 150 / 150 Intake: Oral 150 / 150 Other: Comment pT independent in bathroom pt is independent in the bathroom Voiding Methods Toilet Toilet Data Completed and Pending Labs on day of discharge: Labs from last 24 hours 01/11/24 05:35 WBC Cancelled RBC Cancelled Hgb Cancelled Hct Cancelled MCV Cancelled MCH Cancelled MCHC Cancelled RDW Cancelled Plt Count Cancelled MPV Cancelled Immature Gran % Cancelled Neutrophils % Cancelled Band Neutrophils % Cancelled Lymphocytes % Cancelled Atypical Lymphs % Cancelled Monocytes % Cancelled Eosinophils % Cancelled Basophils % Cancelled Metamyelocytes % Cancelled Myelocytes % Cancelled Promyelocytes % Cancelled Other Cells % Cancelled Nucleated RBC % Cancelled Absolute Neutrophils Cancelled Absolute Lymphocytes Cancelled Absolute Monocytes Cancelled Absolute Eosinophils Cancelled Absolute Basophils Cancelled RBC Morphology Cancelled Polychromasia Cancelled Hypochromasia Cancelled Poikilocytosis Cancelled Basophilic Stippling Cancelled Anisocytosis Cancelled Microcytosis Cancelled Macrocytosis Cancelled Spherocytes Cancelled Tear Drop Cells Cancelled Ovalocytes Cancelled Stomatocytes Cancelled [place] Bodies Cancelled [place] Cells/Echinocytes Cancelled Acanthocytes (Spur) Cancelled Schistocytes Cancelled PFSH All Active Problems (Updated 01/12/24 @ 11:40 by Fareed Luciano MD) Opioid use disorder (Chronic) TBI (traumatic brain injury) (Chronic) UTI (urinary tract infection) (Acute) Acute hypokalemia (Acute) Rhabdomyolysis (Acute) Bipolar 1 disorder (Chronic) Social History Smoking/Tobacco Use Status: Current-Occasional Tobacco Type: e-cigarettes Smoking risk assessment performed?: Yes Alcohol Intake: current Alcohol Intake frequency: 0-2 drinks per day Alcohol type: beer Substance use type: unknown Details: Unable to obtain history Housing: other Time Spent with Patient Time Spent with Patient: <45 minutes Time was spent: preparing to see the patient(eg.review tests), obtaining and/or reviewing separately otained hiistory, ordering medications,tests, procedures, referring, communicating with other health senior care manager, indepentently interpreting results, counseling the patient and care coordination
--- NOTE | 2024-01-12 12:08 | NUR.NOTE ---
Nursing Note: Full nurse to nurse report was given to transfer facility. All questions were answered.
[2024-01-12] MEDS: hydrOXYzine HCL 25 MG TAB PO (12:44)
--- NOTE | 2024-01-12 14:02 | PDOC.CMDIS ---
Date of service: 01/12/24 LACE Index Scoring Tool Questions: Length of Stay (in days): 4 - 6 Was the patient admitted via the E.D.?: Yes E.D. Visits: 1 Answers: Total Score: 8 Risk of Readmission: Low Risk Care Management Discharge Plan Reason for Hospitalization: Rhabdomyolysis, UTI Discharge Plan: Ivan discharged to [facility] via [facility]. Ivan will follow up with [facility] and his PCP and plan of care instructions. Patient/Family Education Needs: Review discharge instructions and plan of care as prescribed. Discussion of Ask Me Three SDOH Health Related Social Needs: Health related social needs risk of homeless Health related social needs: housing instability, housed, with risk of homelessness(Z59.811) MH Services (Omit if N/A) Current MH Services: Psychiatric Inp Referred to Internal [facility] (ED embedded) porter sample case?: Yes Disposition Disposition: [place] [facility] via [facility]
== END 2024-01-12 13:02 | DRG 558 ==
LOC: ER 01-09 00:21 → MS 01-09 02:07
PROVIDERS: Family Medicine; Admitting Provider Family Medicine; Emergency Provider Physician Assistant; Visit Provider Family Medicine
DX: M62.82 Rhabdomyolysis (principal); N30.00 Acute cystitis without hematuria; F11.20 Opioid dependence, uncomplicated; R45.851 Suicidal ideations; F31.9 Bipolar disorder, unspecified; S06.9XAS Unspecified intracranial injury with loss of consciousness status unknown, sequela; F43.10 Post-traumatic stress disorder, unspecified; Z91.51 Personal history of suicidal behavior; R44.1 Visual hallucinations; Z79.899 Other long term (current) drug therapy; F17.290 Nicotine dependence, other tobacco product, uncomplicated; T42.6X5A Adverse effect of other antiepileptic and sedative-hypnotic drugs, initial encounter
CPT/HCPCS: 00123; 36415; 80048; 80053; 80307; 82550; 83690; 87637; 93005; 96127; 96360; 96361; 96365; 99285; J1650; 80320; 81003; 81015; 83735; 84443; 85025; 87086; 93010; 99223; 99233; 99238; J3480

== ENCOUNTER 2025-03-03 01:07 | Emergency (ER) | payer MEDICARE, MEDICAID, SELFPAY ==
[2025-03-03 01:11] VITALS: BP 134/74; PULSE 70; RESP 18; TEMP 36.4; O2SAT 98
--- NOTE | 2025-03-03 01:16 | ED.GENADUL_ITS ---
Discharge Plan Disposition Patient Disposition: Home Condition: Good Discharge Details Chief Complaint: Laceration Clinical Impression: Scrotal bleeding ED Provider: Jamie Kate Home Meds and New Rx's Prescriptions: No Action Brixadi 128 mg/0.36 mL solution, extended rel syringe 128 mg SUBCUT Q28D bupropion HCl 150 mg tablet extended release 24 hr 150 mg PO BID Patient Comments: TAKE ONE TABLET BY MOUTH TWICE A DAY buspirone 10 mg tablet 20 mg PO TID Patient Comments: TAKE TWO TABLETS BY MOUTH THREE TIMES A DAY clonidine HCl 0.1 mg tablet 0.1 mg PO TID Patient Comments: TAKE ONE TABLET BY MOUTH THREE TIMES A DAY NEEDED famotidine 40 mg tablet 40 mg PO DAILY Patient Comments: TAKE ONE TABLET BY MOUTH EVERY DAY omeprazole 40 mg capsule,delayed release(DR/EC) 40 mg PO DAILY Patient Comments: TAKE ONE CAPSULE BY MOUTH EVERY DAY nicotine 21 mg/24 hr patch 24 hour 1 patch topical DAILY Patient Comments: APPLY ONE PATCH TO THE SKIN EVERY DAY cyclobenzaprine 5 mg tablet 5 mg PO HS PRN Patient Comments: TAKE ONE TABLET BY MOUTH AT BEDTIME NEEDED albuterol sulfate [Ventolin HFA] 90 mcg/actuation HFA aerosol inhaler 2 puff INHALATION Q6H PRN Patient Comments: INHALE TWO PUFFS BY MOUTH EVERY 6 HOURS NEEDED FOR WHEEZING ibuprofen 600 mg tablet 600 mg PO QID PRN Patient Comments: TAKE ONE TABLET BY MOUTH FOUR TIMES A DAY NEEDED risperidone 2 mg tablet 2 mg PO BID Patient Comments: TAKE 1 TABLET BY MOUTH TWO TIMES A DAY trazodone 50 mg tablet 50 mg PO HS Patient Comments: TAKE 1 TABLET BY MOUTH AT BEDTIME hydroxyzine HCl 25 mg tablet 25 mg PO TID PRN Patient Comments: TAKE 1 TABLET BY MOUTH THREE TIMES A DAY NEEDED FOR ANXIETY magnesium oxide 400 mg (241.3 mg magnesium) tablet 400 mg PO DAILY Patient Comments: TAKE 1 TABLET BY MOUTH DAILY Discharge Instructions Instructions: Varicose Veins (DC) Additional Instructions: At this time you have 3 small varicosities on your scrotum. If these get scraped they can bleed quite severely. If they do begin bleeding again even despite the glue that we put on them, please gently pinch them with a flat finger. The bleeding should eventually stop. Please do not scrape or scratch at your scrotum so as to help prevent any repeat bleeding. If you notice any worsening of your symptoms, or any new symptoms such as vomiting, diarrhea, fever, chills, shortness of breath, chest pain, numbness, weakness, or fainting , please return immediately to the emergency department for reevaluation. Please follow up with your primary care provider as soon as possible for reassessment and reevaluation. As always, it was a pleasure participating in your medical care today. HPI General Date/Time Provider Initiated Documentation: 03/03/25 01:09 . HPI Narrative: This is a pleasant 44-year-old male with a past medical history of TBI, bipolar type I, who presents today for scrotal bleeding. Patient states that over the last hour he noticed some significant bleeding from his scrotum. He denies any trauma. He denies any pain. He is not on any blood thinners. He has never had something like this before. No other complaints at this time. No other modifying factors. Once the bleeding started he applied paper towels to the area, this has seemingly stopped the bleeding. Related Data Home Medications ?Medication ?Instructions ?Recorded ?Confirmed buprenorphine 128 mg/0.36 mL 128 mg subcut Q28D 01/08/24 01/08/24 solution,ext.rel.subcutaneous syringe (Brixadi Monthly) bupropion HCl 150 mg 24 hr tablet, 150 mg PO BID 01/08/24 01/08/24 extended release buspirone 10 mg tablet 20 mg PO TID 01/08/24 01/08/24 clonidine HCl 0.1 mg tablet 0.1 mg PO TID 01/08/24 01/08/24 famotidine 40 mg tablet 40 mg PO DAILY 01/08/24 01/08/24 omeprazole 40 mg capsule,delayed 40 mg PO DAILY 01/08/24 01/08/24 release albuterol sulfate 90 mcg/actuation 2 puff inhalation Q6H PRN 01/10/24 01/10/24 aerosol inhaler (Ventolin HFA) cyclobenzaprine 5 mg tablet 5 mg PO HS PRN 01/10/24 01/10/24 hydroxyzine HCl 25 mg tablet 25 mg PO TID PRN 01/10/24 01/10/24 ibuprofen 600 mg tablet 600 mg PO QID PRN 01/10/24 01/10/24 magnesium oxide 400 mg (241.3 mg 400 mg PO DAILY 01/10/24 01/10/24 magnesium) tablet nicotine 21 mg/24 hr daily 1 patch topical DAILY 01/10/24 01/10/24 transdermal patch risperidone 2 mg tablet 2 mg PO BID 01/10/24 01/10/24 trazodone 50 mg tablet 50 mg PO HS 01/10/24 01/10/24 Allergies Allergy/AdvReac Type Severity Reaction Status Date / Time bee venom protein (honey bee) Allergy Severe Anaphylaxis Verified 03/03/25 01:16 hydrocodone Allergy Unknown Contraindic Unverified 03/03/25 01:16 ated aspirin AdvReac Nausea Verified 03/03/25 01:16 propoxyphene AdvReac Other (See Verified 03/03/25 01:16 Comment) General Stated Complaint: Laceration YULIYA: 4 Exam Narrative Exam Narrative: 1.Const: Well-nourished, Well-developed, appearing stated age 2.Eyes: PERRL, no conjunctival injection, and symmetrical lids. 3.ENT: Atraumatic external nose and ears. Moist MM. Neck: Symmetric, trachea midline, No thyromegaly. 4.CVS: +S1/S2, Peripheral pulses 2+ and equal in all extremities. Brisk capillary refill in all extremities. 5.RESP: Unlabored respiratory effort. Clear to auscultation bilaterally. No wheezes rales or rhonchi 6.GI: Soft, Nontender/Nondistended, No hepatosplenomegaly. No guarding or rebound. Genital exam demonstrates an intact scrotum with no evidence of lacerations. There are 3 areas of tiny telangiectasias versus superficial varicosities. They are pinpoint in nature. No active bleeding at this time. Patient states that this was the source of the bleeding. No evidence of laceration or penile bleeding. 7.MSK: Normocephalic/Atraumatic, Extremities w/o deformity or ttp No cyanosis or clubbing, Normal movement of all extremities 8.Skin: Warm, Dry. No rashes or lesions. 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 Sensation grossly intact, no focal neurologic deficits. 10.Psych: (AAO) x3. Appropriate mood and affect Course Vital Signs Vital signs: Vital Signs Temperature 36.4 C L 03/03/25 01:11 Pulse 70 03/03/25 01:11 Respiratory Rate 18 03/03/25 01:11 Blood Pressure 134/74 03/03/25 01:11 Pulse Oximetry 98 03/03/25 01:11 Temperature 36.4 C L 03/03/25 01:11 Temperature Source Temporal Artery Scan 03/03/25 01:11 Pulse 70 03/03/25 01:11 Respiratory Rate 18 03/03/25 01:11 Blood Pressure 134/74 03/03/25 01:11 Blood Pressure Position Sitting 03/03/25 01:11 Pulse Oximetry 98 03/03/25 01:11 Oxygen Delivery Method Room Air 03/03/25 01:11 Oxygen Flow Rate 0 03/03/25 01:11 Pain Level 0 03/03/25 01:11 Medical Decision Making This is a pleasant 44-year-old male with a past medical history of TBI, bipolar type I, who presents today for scrotal bleeding. Patient states that over the last hour he noticed some significant bleeding from his scrotum. He denies any trauma. He denies any pain. He is not on any blood thinners. He has never had something like this before. No other complaints at this time. No other modifying factors. Once the bleeding started he applied paper towels to the area, this has seemingly stopped the bleeding. Genital exam demonstrates an intact scrotum with no evidence of lacerations. There are 3 areas of tiny telangiectasias versus superficial varicosities. They are pinpoint in nature. No active bleeding at this time. Patient states that this was the source of the bleeding. No evidence of laceration or penile bleeding. A small dab of Dermabond was applied to each area in an effort for prevention of future bleeding. No indication for electrocautery at this time as all bleeding has stopped. Recommend avoidance of itching and scratching in the scrotum. Patient otherwise stable for discharge. I discussed the case with the patient's caregiver who is also at bedside. I have extensively reviewed the treatment plan and discharge instructions with the patient and their family. I have addressed all patient concerns at this time. The patient and family was made aware of what symptoms to monitor for that would warrant a return to the emergency department. Discussed the plan with the patient and family, they demonstrate verbal understanding and agreement with our assessment and plan at this time. The documentation in this chart was dictated using [employer] dictation software. Please excuse any dictation errors. Quality:SDOH Health Related Social Needs: No Data to Display PFSH All Active Problems (Updated 03/03/25 @ 01:17 by Jamie Kate DO) Scrotal bleeding (Acute) Opioid use disorder (Chronic) TBI (traumatic brain injury) (Chronic) Acute hypokalemia (Acute) Bipolar 1 disorder (Chronic) Social History Smoking/Tobacco Use Status: Current-Occasional Tobacco Type: e-cigarettes Smoking risk assessment performed?: Yes Alcohol Intake: current Alcohol Intake frequency: 0-2 drinks per day Alcohol type: beer Substance use type: unknown Details: Unable to obtain history Housing: other
== END 2025-03-03 01:25 | disposition home or self-care (01) ==
LOC: ER 01:29
PROVIDERS: Emergency Provider Student in an Organized Health Care Education/Training Program
DX: N50.1 Vascular disorders of male genital organs (principal)
CPT/HCPCS: 99283; 99282